=== PATIENT | female | born 1970 | race Caucasian/White ===

== ENCOUNTER 2019-06-09 09:12 | Emergency (ER) | payer BC, SELFPAY ==
[2019-06-09 09:13] VITALS: BP 128/86; PULSE 81; RESP 17; TEMP 36.8; O2SAT 95; BMI 29.2
--- NOTE | 2019-06-09 09:48 | ED.DCSUM_ITS ---
- ER Visit Summary Date of Service: 06/09/19 Chief Complaint: [Back pain] History of Present Illness: The patient is a 48 F [presents the emergency department complaint of pain in her back x5 days. Patient states she woke up with it 1 day and thought maybe she slept wrong. Patient describes it as just below her neck on the right side and at times radiates underneath her scapula and towards her right armpit. She denies any chest pain or shortness of breath. She denies pleuritic symptoms. She denies recent travel or surgery. Patient states that if she puts her arm straight up over her head the pain tends to resolve. Patient has tried ibuprofen and heat to the area but not get much pain relief. Patient does have a history of diabetes.] Physical Examination: [HEENT-PERRLA, EOMI. Cranial nerves II through XII grossly intact. TMs clear. Mucous membranes moist. No adenopathy. Cardiovascular-regular rate and rhythm without murmur or ectopy Lungs-clear to auscultation, chest wall stable without crepitus or subcu emphysema Abdomen-normoactive bowel sounds, soft, nontender, no rebound or rigidity, no peritoneal signs. Back exam-patient has some mild tenderness over the right suprascapular region and trapezius. Patient also has some mild discomfort underneath the right scapula on palpation. Patient has normal range of motion the upper extremities. Dependent reflexes are plus 2 out of 4 bilaterally the biceps, triceps, brachioradialis. Extremities-intact ?4, normal range of motion, normal pulses, atraumatic] Test Results: [None indicated] Emergency Department Course and Treatment: [I discussed with patient that I suspect pain is likely muscular or possibly related to impingement of a thoracic nerve. I do not feel imaging would be helpful at this time.] Treatment Plan: [Patient will be given a prescription for Flexeril, [place], and naproxen. Patient will be referred to primary care physician for follow-up in 5 to 7 days.] Disposition: [Discharged home in stable condition] Impression: [Upper back pain-nontraumatic] This note was generated with FlatStackation software. It may contain incorrect words, spelling, and punctuation that were not noted in review of the chart prior to signing ED Disposition - Plan for ED Patient: Referrals: Andie Winn MD [Primary Care Provider] -
--- NOTE | 2019-06-09 09:50 | ED.DEP ---
ED Disposition - Plan for ED Patient: Instructions: BACK AND NECK PAIN, General Prescriptions: cycloBENZAPRine HCl [Flexeril] 10 mg PO TID PRN #20 tab PRN Reason: Muscle Spasm Prescription Printed Naproxen [Naprosyn] 500 mg PO BID PRN #20 tab Prescription Printed Hydrocodone Bitart/Apap 5-325 [[place] 5MG-325MG] 1 tab PO Q4H PRN PRN 2 Days #14 tab PRN Reason: Pain Prescription Printed Referrals: Andie Winn MD [Primary Care Provider] - 5-7 Days
== END 2019-06-09 10:07 | disposition home or self-care (01) ==
LOC: ED 09:55
PROVIDERS: Emergency Provider Emergency Medicine; Family Provider Internal Medicine; PCP Internal Medicine
DX: M54.6 Pain in thoracic spine (principal); E11.9 Type 2 diabetes mellitus without complications; Z79.84 Long term (current) use of oral hypoglycemic drugs
CPT/HCPCS: 99282

== ENCOUNTER 2021-04-15 06:01 | Day surgery (SDC) | payer BC, SELFPAY ==
[2021-04-15] VITALS (8 sets, daily range): BP systolic 99–114; BP diastolic 65–86; PULSE 62–76; RESP 16; TEMP 35.9–36.4; O2SAT 93–100; BMI 31.1
[2021-04-15 06:38] LABS: Internal QC Validated? YES +Cl - CLEAR BKGD; Pregnancy, Urine Negative Negative
[2021-04-15 06:54] LABS: Hematocrit 44.2 % (37-47); Hemoglobin 14.4 g/dL (12.0-15.0); Mean Corp Hgb Conc 32.6 g/dL (32-36); Mean Corpuscular Hgb 29.8 pg (27.0-32.0); Mean Corpuscular Volume 91.3 fL (81-99); Mean Platelet Vol. 9.6 fl (6.2-12.0); Platelet Count 244 K/mm3 (150-450); RBC Distribution Width CV 11.9 % (11.6-14.6); RBC Distribution Width SD 39.8 fl (35.1-43.9); Red Blood Count 4.84 M/mm3 (4.2-5.4); White Blood Count 6.2 K/mm3 (4.4-11.0)
[2021-04-15] MEDS: Lactated Ringers 1,000 ML 100 ML IV (06:56)
--- NOTE | 2021-04-15 07:30 | EMB_PTH ---
PATIENT: JOEL GUARDADO [place] [facility] [place][id number] AGE/SX: 50/F ROOM: RE04/15/[address]: Dr. Deborah Peña DO : 1970 BED: DIS: 04/15/2021 SPEC #: [id number] RECD: 04/15/21 10:07 STATUS: CISCO REIvy #: [id number] CHERIE: 04/15/21 07:[address]: Deborah Peña DEPT: SURGICAL PATHOLOGY RECD BY: Shelby Don ENTERED: 04/15/21 11:14 SP TYPE: ENDOM BX/C ARDEN DR: Dr. Andie Winn MD Tissues: Endometrium, NOS Procedures: Surgery Specimen Level IV HEADER OPERATION: Hysteroscopy, D & C, IUD insertion PRE-OP DIAGNOSIS: Thickened endometrium, uterine hyperplasia TISSUE SUBMITTED: Endometrial curettings MICROSCOPIC DIAGNOSIS Endometrial curettings: Simple endometrial hyperplasia without atypia. Fragments of myometrium. Fragments of benign ecto- and endocervical mucosa. RISHABH:latanya 04/16/2021 MICROSCOPIC DESCRIPTION Slides are reviewed. GROSS DESCRIPTION Received in fixative is one container labeled with the patient's name and designated endometrial curettings. The specimen consists of multiple fragments of hemorrhagic soft tissue that in aggregate measure 2.5 x 2 x 0.1 cm. The specimen is totally submitted in one cassette. / RISHABH:latanya 04/15/21 TC:5 CPT: 00484
--- NOTE | 2021-04-15 07:31 | PCM.DC ---
Discharge Instructions Diet Discharge Diet: No restrictions Activity Discharge Activity: May Drive (24 hours after surgery) and May Shower Return to work on:: 04/19/21 May resume sexual activity in: 1-2 weeks Weight Bearing Status: Weight bearing as tolerated Lifting Restrictions: No restrictions Additional Activity Instructions:: No intercourse, tampons, hot tubs, tub baths, or pools for 1 week Dressing / Incision Call your doctor if you observe: Fever of 101 or Higher, Numbness or Tingling, Inability to urinate, Inability to have a bowel movement, Using more than 1 pad per hour, Shortness of breath, Dizziness, Fainting spells, Swelling in the ankles, Chest pain, Increased palpitations (irregular heartbeat), Calf discomfort and Uncontrolled pain Follow Up Care Please Follow Up With: Mariana When: 1-2 weeks Test Results: Test results from this visit will be discussed in further detail at your follow-up appointment, if applicable. Discharge Plan Admission Primary Reason for Your Visit: Surgery Attending Provider: Deborah Peña Primary Care Provider: Andie Winn Discharge Orders/Prescriptions Prescriptions: No Action atenolol 25 MG tablet 25 mg PO DAILY RF: 0 hydrochlorothiazide 25 MG tablet 12.5 mg PO DAILY RF: 0 rizatriptan 10 mg tablet 10 mg PO PRN PRN (Reason: MIGRAINES) RF: 0 glipizide 5 mg tablet extended release 24hr 5 mg PO DAILY RF: 0 Myrbetriq 50 mg tablet extended release 24 hr 50 mg PO DAILY RF: 0 Trulicity 1.5 mg/0.5 mL pen injector 1.5 mg SUBCUT QWEEK RF: 0 cholecalciferol (vitamin D3) [Vitamin D3] 25 mcg (1,000 unit) Capsule 25 mcg PO DAILY RF: 0 Referrals / Follow Up: Andie Winn MD [Primary Care Provider] - Disposition Disposition (needs filled in before D/C Order can be placed): Home, Self Care
[2021-04-15 08:00] LABS: Bedside Glucose 177 mg/dL (70-110)
--- NOTE | 2021-04-15 09:12 | OP.PCM_ITS ---
Problems Associated Problem List Diagnoses (1) Uterine hyperplasia: Operative Report Date of Procedure: 04/15/21 Surgeon: Deborah Peña DO Manager Document Control: None Procedure: Hysteroscopy, dilation curettage, Mirena IUD placement Indications: Uterine hyperplasia on an endometrial biopsy in the office Start time: 743 Stop time: 753 Anesthesia: MAC Preop diagnosis: Uterine hyperplasia Postop diagnosis: As above Estimated blood loss: <50 cc Complications: None Fluid deficit: 0 cc Operative findings: Normal-appearing uterine cavity and bilateral tubal ostia visualized. No polyps or fibroids noted. Normal cervical canal. Minimal to no descent of the uterus and cervix. Procedure: Patient was prepped and draped in the dorsolithotomy position using yellowfin stirrups. Under MAC anesthesia the procedure was started. A weighted speculum was placed in the vagina to expose the cervix. The anterior lip of the cervix was grasped with a single-tooth tenaculum. The cervix was serially dilated to accommodate the hysteroscope. The hysteroscope was advanced to the fundus of the uterus and the cavity was distended with normal saline. Normal- appearing cavity was noted and bilateral tubal ostia were visualized. Pictures were taken. Hysteroscopy was then removed. A sharp curettage was performed for a moderate amount of tissue. The tissue was sent to the pathologist for review. The uterus sounded to 9 cm. The Mirena IUD device was set in usual sterile fashion and placed at the fundus of the cavity. The IUD strings were trimmed to 2 cm in length. Bleeding was hemostatic. All instruments were removed from the vagina. Instrument and sponge counts were correct. The patient was taken to the recovery room in stable condition.
== END 2021-04-15 09:31 | disposition home or self-care (01) ==
LOC: SDC 06:04 → AC 06:05
PROVIDERS: PCP Internal Medicine; Referring Provider Obstetrics & Gynecology; Visit Provider Obstetrics & Gynecology
PROC: 0UDB8ZZ Extraction of Endometrium, Via Natural or Artificial Opening Endoscopic (ICD-10-PCS; CPT 58558; principal; 2021-04-15 07:20)
DX: N85.01 Benign endometrial hyperplasia (principal); E11.9 Type 2 diabetes mellitus without complications; I10 Essential (primary) hypertension; E66.9 Obesity, unspecified; Z79.84 Long term (current) use of oral hypoglycemic drugs; Z79.899 Other long term (current) drug therapy
CPT/HCPCS: 58300; 58558; 81025; 82962; 85027; 86850; 86900; 86901; 88305; J7120

== ENCOUNTER 2023-11-23 09:27 | Day surgery (SDC) | payer BC, SELFPAY ==
--- NOTE | 2023-11-20 07:35 | EKG12_ITS ---
Test Reason : PREOP Blood Pressure : / mmHG Vent. Rate : 065 BPM Atrial Rate : 065 BPM P-R Int : 176 ms QRS Dur : 082 ms QT Int : 410 ms P-R-T Axes : 038 -29 -09 degrees QTc Int : 426 ms Normal sinus rhythm Nonspecific ST abnormality Abnormal ECG Confirmed by SOPHIE BARTLETT, KELSIE ([id number]), desk editor JOSEFA CACERES ([id number]) on 11/21/2023 6:05:08 AM Referred By: Deborah Peña Confirmed By:KELSIE BARRIOS MD
[2023-11-20 08:37] LABS: Hematocrit 44.8 % (37-47); Hemoglobin 14.1 g/dL (12.0-15.0); Mean Corp Hgb Conc 31.5 g/dL (32-36); Mean Corpuscular Hgb 28.7 pg (27.0-32.0); Mean Corpuscular Volume 91.2 fL (81-99); Platelet Count 220 K/mm3 (150-450); RBC Distribution Width CV 12.4 % (11.6-14.6); RBC Distribution Width SD 41.1 fl (35.1-43.9); Red Blood Count 4.91 M/mm3 (4.2-5.4); White Blood Count 6.2 K/mm3 (4.4-11.0)
[2023-11-20 08:57] LABS: Hemoglobin A1c 7.4 % (3.8-5.6)
[2023-11-20 09:05] LABS: ALB/GLOB Ratio 1.1 RATIO (0.9-2.4); AST(SGOT) 26 U/L (15-37); Alanine Aminotransfer ALT/SGPT 49 U/L (13-56); Albumin, Serum 3.7 g/dL (3.2-5.0); Alkaline Phosphatase 50 U/L (45-117); Anion Gap 5 (5-15); BUN 27 mg/dL (7-18); BUN/Creat Ratio 29.5 RATIO (10-20); Calcium,Total 9.9 mg/dL (8.5-10.1); Chloride 103 mmol/L (98-107); Creatinine, Serum 0.92 mg/dL (0.55-1.02); EST Glomerular Filtration Rate 68 mL/min (>60); Est Glom Filt Rate - Afr Amer 82 mL/min (>60); Globulin 3.4 g/dL (2.2-4.2); Glucose 186 mg/dL (74-106); Potassium 4.1 mmol/L (3.5-5.1); Protein, Total 7.1 g/dL (6.4-8.2); Sodium Level 137 mmol/L (136-145)
[2023-11-23] VITALS (7 sets, daily range): BP systolic 119–131; BP diastolic 76–90; PULSE 60–77; RESP 14–18; TEMP 35.9–36.6; O2SAT 92–98; BMI 28.9
--- NOTE | 2023-11-23 | OV_PTH ---
PATIENT: JOEL GUARDADO [place] [facility] [place][id number] AGE/SX: 52/F ROOM: RE11/23/[address]: Dr. Deborah Peña DO : 1970 BED: DIS: 11/23/2023 SPEC #: [id number] RECD: 11/23/23 14:40 STATUS: CISCO XIAO #: [id number] CHERIE: 11/23/23 00:[address]: Deborah Peña DEPT: SURGICAL PATHOLOGY RECD BY: Ivelisse Sahu ENTERED: 11/24/23 07:17 SP TYPE: OVARY OTHR DR: JOLENE BARDALES, ENGLISH DIVISION CHAIR-C Tissues: A - OVARIAN CYST B - Endometrium, NOS Procedures: Surgery Specimen Level IV HEADER OPERATION: Laparoscopic, salpingo-oophorectomy, hysteroscopy, D&C PRE-OP DIAGNOSIS: Ovarian cysts, endometrial polyp, history of hyperplasia TISSUE SUBMITTED: A- Bilateral fallopian tubes and ovaries, B- Endometrial curetting MICROSCOPIC DIAGNOSIS A. Bilateral fallopian tubes and ovaries, salpingo-oophorectomy: One ovary with hemorrhagic corpus luteal cysts and corpora albicantia and tubo ovarian adhesions. One fallopian tube with benign paratubal cysts. Other ovary with corpora albicantia and simple serous cyst. Other fallopian tube with no pathologic change. B. Endometrium, curettings: Strips of benign superficial endometrium. Rare strips of benign superficial endocervix. See comment. AUDIE/ 11/27/2023 COMMENT B. Case has been reviewed in consultation with Dr. Duarte who concurs with the above diagnosis. IDC:[id number] MICROSCOPIC DESCRIPTION Slides are reviewed. GROSS DESCRIPTION A. Received in fixative is one container labeled with the patient's name and designated bilateral fallopian tubes and ovaries. The specimen consists of bilateral fallopian tubes including fimbrial ends. One of the fallopian tubes measuring 5.0 cm in length and 0.7 cm in diameter. Focal tubal and ovarian adhesion are noted. Proximal portion of fallopian tube. The fimbrial end is identified. The adjacent ovary measures 2.0 x 1.5 x 1.2cm. Sections reveal a cyst measuring 1.0cm in greatest dimension. Second fallopian tube measures 5.5cm in length and 0.6cm in diameter. The fimbrial end is identified. Sections reveal unremarkable cut surfaces. Second ovary is detached and measures 2.0 x 2.0 x 1.2cm. Sections reveal a cyst filled with clear fluid measuring 0.7cm in greatest dimension. The fallopian tubes are not identified as right or left. Mechanical Design Technician sections are submitted in six cassettes as follows: 1-3- one fallopian tube and ovary (1- fallopian tube, 2-3 ovary),4-6- second fallopian tube and ovary (4-fallopian tube, 5-6- ovary). B. Received in fixative is one container labeled with the patient's name and designated Endometrial curetting. The specimen consists of multiple fragment of soft tissue mixed with mucoid tissue measuring in aggregate 2.5 x 1.5 x 0.1cm. The entire specimen is submitted in one cassette. RISHABH: 11/24/23 TC:1 CPT: 18640,12736
[2023-11-23] MEDS: Lactated Ringers 1,000 ML 15 ML IV (10:10)
[2023-11-23 10:30] LABS: Bedside Glucose 155 mg/dL (74-106)
[2023-11-23] MEDS: Bupivacaine Mpf 0.5% 30 ML VIAL (12:11)
--- NOTE | 2023-11-23 12:36 | DCINST_ITS ---
Discharge Instructions Diet Discharge Diet: No restrictions (Diet as tolerated) Activity Discharge Activity: May Not Drive (Until you are more than 24 hours out from surgery, no longer taking pain medication, and you feel strong enough to slam on a brake or turn a steering wheel sharply) and May Shower (Once you are more than 24 hours out from surgery) May resume sexual activity in: 2 weeks (Nothing in the vagina for 2 weeks while you are having the vaginal bleeding. No tampons, intercourse, soaking in water) Ice area for (Minutes): 15 Weight Bearing Status: Weight bearing as tolerated Lifting Restrictions: Nothing heavier than 10-15 pounds for 2 weeks and until your follow up Dressing / Incision Call your doctor if your incision/area has: Continuous Slow Oozing, Sudden Increased Bleeding, Increased Pain/ Swelling, Increased Redness, Foul Smelling Discharge and Swelling at the incision site Call your doctor if you observe: Fever of 101 or Higher, Coldness, Increased Pain, Numbness or Tingling, Change in Color, Inability to urinate, Inability to have a bowel movement, Using more than 1 pad per hour, Shortness of breath, Dizziness, Fainting spells, Swelling in the ankles, Chest pain, Prolonged hiccupping, Increased palpitations (irregular heartbeat), Calf discomfort and Uncontrolled pain Suture Line Care: Avoid Pulling/Pushing and Avoid Pinching/Bending Remove Dressing in: leave in place till F/U (The glue will peel off over time. There are sutures under the skin that will dissolve in around 6-8 weeks) Cleanse incision/area with: Soap & Water Follow Up Care Please Follow Up With: Deborah Peña DO When: 1-2 weeks follow up Test Results: Test results from this visit will be discussed in further detail at your follow- up appointment, if applicable. Discharge Plan Admission Primary Reason for Your Visit: surgery Attending Provider: Deborah Peña Primary Care Provider: JOLENE BARDALES Print Language: Turkmen Discharge Orders/Prescriptions Prescriptions: New oxycodone-acetaminophen [Percocet] 5-325 mg tablet 1 tab PO Q6H PRN (Reason: pain) 7 Days Qty: 5 0RF oxycodone-acetaminophen [Percocet] 5-325 mg tablet 1 tab PO Q6H PRN (Reason: pain) 7 Days Qty: 5 0RF Continued atenolol 25 MG tablet 25 mg PO DAILY hydrochlorothiazide 25 MG tablet 12.5 mg PO DAILY rizatriptan 10 mg tablet 10 mg PO PRN PRN (Reason: MIGRAINES) Patient Comments: take 1 tablet by mouth AT ONSET OF HEADACHE - MAY REPEAT AFTER 2 HOURS - MAX OF 3 TABS PER DAY metformin 750 mg tablet extended release 24 hr 750 mg PO BID cetirizine [All Day Allergy (cetirizine)] 10 mg tablet 10 mg PO DAILY Trulicity 0.75 mg/0.5 mL pen injector 0.75 mg subcut WILKINS albuterol sulfate 90 mcg/actuation aerosol powdr breath activated 1 inh inhalation Q4H PRN PRN (Reason: shortness of breath or wheezing) Referrals / Follow Up: JOLENE BARDALES BILLING REPRESENTATIVE-C [Primary Care Provider] - Disposition Disposition (needs filled in before D/C Order can be placed): Home, Self Care
--- NOTE | 2023-11-23 12:38 | PCM.OPRPT ---
Problems Associated Problem List Diagnoses (1) Ovarian cyst: (2) Endometrial polyp: (3) History of endometrial hyperplasia: Report of Operation Date of Procedure: 11/23/23 Pre-Operative Diagnosis: Bilateral ovarian cysts on pelvic ultrasound, endometrial polyp on pelvic ultrasound Post-Operative Diagnosis: As above Surgery/Procedure Performed:: Laparoscopic BSO Hysteroscopy, D&C Description of Surgical Findings:: Omental adhesions noted along the midline of the anterior abdominal wall. The right fallopian tube was adhered to pelvic side wall anterior to the uterus. A small subcentimeter cyst was noted on the left ovary. The right ovary appeared normal. Bilateral fallopian tubes appeared normal. Uterus appeared normal. Vaginal atrophy noted and the cervix is high and anterior. Endometrium atrophic appearing. Surgeon: Deborah Peña back closer: Rosie Ernst Type of Anesthesia: General Special Medications: None Specimen's removed: Bilateral fallopian tubes and ovaries Endometrial curettings Drains: None Estimated Blood Loss (mL): < 50 Fluids Replaced: 150 cc fluid deficit Description of Procedure: The patient was taken to the operating room where general anesthesia was induced. She was prepped and draped in the dorsal lithotomy position using yellowfin stirrups. From below Dr. Ernst placed a weighted speculum to expose the cervix, and a single-tooth tenaculum was placed on the anterior lip of the cervix and the uterus was sounded. Dr. Ernst then placed a uterine manipulator and all other instruments were removed from the vagina. Gloves were changed and attention was turned to the abdominal portion of the procedure. Local was infiltrated all port sites. A supra umbilical incision was made to accommodate a 5 mm port. The 5 mm port was placed under direct visualization. Once confirmed intraperitoneal CO2 insufflation was initiated. No injury was noted upon entry. The placed patient was placed in Trendelenburg position. A right lateral 5 mm port was placed. A left lateral 5 mm port was placed. Omental adhesions were noted in the midline along the anterior abdominal wall. The left ureter was identified. The left fallopian tube and ovary were elevated out of the pelvis. The LigaSure device was used to clamp, cauterize, and transect along the IP ligament. The utero-ovarian ligament was next clamped, cauterized, and transected using LigaSure device. The left ovary and fallopian tube were removed, and placed in the pelvic cul-de-sac. The right fallopian tube was minimally adhered to the right pelvic sidewall anterior to the uterus near the round ligament. The thin filmy adhesions were bluntly dissected. The right fallopian tube and ovary were then elevated out of the pelvis. The right ureter was identified. The right IP ligament was clamped, cauterized, and transected using the LigaSure device. The right utero-ovarian ligament was clamped, cauterized, and transected using the LigaSure device. The right fallopian tube and ovary were removed, and placed in the pelvic cul-de-sac. A 5 mm Endo Catch bag was placed in the abdomen. The bilateral fallopian tubes and ovaries were placed in the Endo Catch bag and removed from the abdomen. The bilateral fallopian tubes and ovaries were sent to pathology for review. Hemostasis was noted. The abdomen was exsufflated. The port sites were closed with 3-0 Monocryl and glue. From below a weighted speculum and right angle tractor were placed to identify the cervix. The cervix was high and anterior, and vaginal atrophy was noted. The anterior lip of the cervix was grasped with single-tooth tenaculum. The cervix was serially dilated to accommodate the Symphion hysteroscope. The Symphion hysteroscope was advanced to the fundus of the uterus and distended with normal saline. No polyp or fibroid was noted in the uterine cavity or in the endocervical canal. The hysteroscope was removed. A sharp curettage was performed for minimal tissue. The endometrial curettings were sent to pathology for review. All instruments were removed from the vagina and vaginal sweep was performed. Bleeding was hemostatic. Instrument, sharp, sponge counts were correct and the patient was taken to the recovery in stable condition. Dr. Ernst assisted with draping the patient, placement of the uterine manipulator, laparoscopic removal of bilateral fallopian tubes and ovaries. Grafts/Implants Used: None Procedure Start Time: 11:47 Procedure Stop Time: 12:35 Complications None Admit VTE Documentation VTE Present on Admission: No VTE Mechan Device Prophylaxis: SCD's
== END 2023-11-23 14:09 | disposition home or self-care (01) ==
LOC: SDC 09:29 → AC 09:29
PROVIDERS: Anesthesiology; PCP Nurse Practitioner; Referring Provider Obstetrics & Gynecology; Visit Provider Obstetrics & Gynecology
PROC: (CPT 58661; principal; 2023-11-23 10:45)
PROC: 0UB98ZZ Excision of Uterus, Via Natural or Artificial Opening Endoscopic (ICD-10-PCS; CPT 58558; 2023-11-23 10:45)
DX: N83.202 Unspecified ovarian cyst, left side (principal); E11.9 Type 2 diabetes mellitus without complications; N83.201 Unspecified ovarian cyst, right side; N84.1 Polyp of cervix uteri; N84.0 Polyp of corpus uteri; Z87.42 Personal history of other diseases of the female genital tract; N73.6 Female pelvic peritoneal adhesions (postinfective); Z79.84 Long term (current) use of oral hypoglycemic drugs; Z79.51 Long term (current) use of inhaled steroids; J45.909 Unspecified asthma, uncomplicated; I10 Essential (primary) hypertension
CPT/HCPCS: 58661; 58558; 00840; 36415; 80053; 82962; 83036; 85027; 86850; 86900; 86901; 88305; 93005; J7120; J2405